=== PATIENT | female | born 1990 | race American Indian/Alaskan Native ===

== ENCOUNTER 2019-01-07 06:12 | Day surgery (SDC) | payer BC ==
[~2019-01-07 06:12] MED LIST: LACTATED RINGERS 1,000 ML IV SCH
[2019-01-07] MEDS ORDERED: TRANSDERM-SCOP TD NR (07:17)
[2019-01-07] MEDS ORDERED: XYLOCAINE MPF 2% ONE (07:20)
[2019-01-07] MEDS ORDERED: SUBLIMAZE ONE (07:21)
[2019-01-07] MEDS ORDERED: DIPRIVAN 10 MG/ML IV ONE (07:21)
[2019-01-07] MEDS ORDERED: NORCO 5/325 PO PRN (07:26)
[2019-01-07] MEDS ORDERED: SUBLIMAZE IV PRN (07:26)
--- NOTE | 2019-01-07 07:26 | Anesthesia Day of Surgery ---
Anesthesia Day of Surgery - Day of Surgery Patient Examined: Yes Patient H&P Reviewed: Yes Patient is NPO: Yes
--- NOTE | 2019-01-07 07:26 | Anesthesia Consultation ---
Anesthesia Consult and Med Hx Date of service: 01/07/19 - Airway Anesthetic Teeth Evaluation: Good ROM Head & Neck: Adequate Mental/Hyoid Distance: Adequate Mallampati Class: Class II Intubation Access Assessment: Probably Good - Pulmonary Exam CTA: Yes - Cardiac Exam Cardiac Exam: RRR - Pre-Operative Health Status ASA Pre-Surgery Classification: ASA1 Proposed Anesthetic Plan: General - Pulmonary Hx Smoking: No Hx Respiratory Symptoms: Yes (dry cough; no fever, chills, or SOB) SOB: No - Cardiovascular System Hx Hypertension: No Hx Heart Attack/AMI: No Hx Percutaneous Transluminal Coronary Angioplasty (PTCA): No Hx Cardia Arrhythmia: No - Central Nervous System Hx Seizures: No CVA: No - Gastrointestinal Hx Gastroesophageal Reflux Disease: No - Endocrine Hx Renal Disease: No Hx Liver Disease: No Hx Insulin Dependent Diabetes: No Hx Non-Insulin Dependent Diabetes: No Hx Thyroid Disease: No - Other Systems Hx Alcohol Use: Yes (Drinks wine daily) Hx Obesity: No - Additional Comments Anesthesia Medical History Comments: No prior GA. No FHx anesthetic complications.
[2019-01-07] MEDS ORDERED: XYLOCAINE 1%/ EPI 1:100,000 INFILTRATI ONE (07:52)
[2019-01-07] MEDS ORDERED: MONSEL'S TP ONE (07:52)
[2019-01-07] MEDS ORDERED: VERSED IV NR (08:00)
[2019-01-07] MEDS ORDERED: LUGOL'S SOLUTION 5% TP ONE ×2 (08:38→09:33)
[2019-01-07] MEDS ORDERED: ACETIC ACID 3% SOLN TP ONE ×2 (08:38→09:33)
[2019-01-07] MEDS ORDERED: SILVER NITRATE TP ONE ×2 (09:15→09:38)
[2019-01-07] MEDS ORDERED: TORADOL ONE (09:15)
[2019-01-07] MEDS ORDERED: ZOFRAN ONE (09:15)
[2019-01-07] MEDS ORDERED: NACL 0.9% IR ONE ×2 (09:33)
[2019-01-07] MEDS ORDERED: DEMEROL IV PRN (09:40)
--- NOTE | 2019-01-07 09:53 | Operative Report ---
Operative Report Operative Report: DATE OF OPERATION: 01/07/19 PREOP Diagnosis 1. Unable to tolerate colposcopy in office 2. 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 Abnormal uterine bleeding 5. Leiomyoma Postop Diagnosis 1. Unable to tolerate colposcopy in office 2. 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 Abnormal uterine bleeding 5. Leiomyoma Procedure: 1. Hysteroscopy 2. D&C 3. Colposcopy Findings 1. Anteverted uterus sounded to 9cm 2. Submucosal fibroid at uterine fundus, obstructing bilateral tubal ostia Surgeon 1. Joy Freed MD Anesthesia: 1. General I/O: EBL: <20ml LR Fluid deficit <1000ml Specimens removed: 1. Cervical biopsy 9oclock 12oclock 2. Endocervical curettage 3. Endometrial currettings Complications: none Disposition: Patient taken to recovery room in stable condition INDICATIONS: The patient is a 28yo with ASCUS/HRHPV (+) who was unable to tolerate colposcopy in office presents for colposcopy under anesthesia with concurrent diagnostic hysteroscopy for abnormal uterine bleeding and enlarged uterus. The risks including but not limited to bleeding, infection, injury to surrounding organs and uterine perforation have been discussed with patient. All questions were answered and informed consent signed. PROCEDURE: The patient was taken to the OR in stable condition and placed on the OR table. Adequate anesthesia was achieved. She was placed in the dorsal lithotomy position using Jose L stirrups and sterilely draped in the usual fashion. She wore SCDs for DVT prophylaxis. A time out was done. A sterile speculum was placed per vagina and a colposcopy was done using acertic acid and Lugol's solution. Two biopsies were taken at visual areas of acetic white changes. An ECC was done. A single toothed tenaculum was placed at the anterior lip of the cervix. The uterus was sounded to 9cm. The cervix was dilated to 19 Vietnamese and a 0 degree hysteroscope was introduced into the cervical os. A fibroid was noted at the fundal cavity obliterating the right and left cornual os. A gental D&C using #1 currette was used to obtain an endometrial biopsy. The single tooth tenaculum was then removed, cervix noted to be hemostatic. Sterile speculum then removed. All counts were correct. The patient was then to the recovery room in stable condition.
--- NOTE | 2019-01-07 09:57 | Discharge Summary ---
Providers - Providers Attending physician: JEAN MARIE GOODEN Primary care physician: JEAN MARIE GOODEN Hospitalization Reason for admission: other Procedure: other (colposcopy, hysteroscopy, D&C) Hospital course: 28yo presented for colposcopy due to unable to tolerate procedure in office. She also has a history of symptomatic leiomyoma and abnormal uterine bleeding. She underwent a hysteroscopy D&C and location submucoal leiomyoma identified. She recovered well in PACU and was discharged home in stable condition. Condition at discharge: Stable Disposition: DC-01 TO HOME OR SELFCARE - Discharge Diagnoses (1) High risk HPV infection Status: Acute (2) Leiomyoma Status: Acute (3) Abnormal uterine bleeding Status: Acute Plan - Provider Discharge Summary Activity: no sex for 6 weeks Additional instructions: [] Smoking cessation referral if applicable(refer to patient education folder for contact #) [] Refer to [facility] Booklet Call your doctor immediately for: * Fever > 100.5 * Heavy vaginal bleeding ( >1 pad per hour) * Severe persistent headache * Shortness of breath * Reddened, hot, painful area to leg or breast * Drainage or odor from incision. * Keep incision clean and dry at all times and follow doctor's instructions regarding bathing/showering - Follow up plan Follow up: JEAN MARIE GOODEN MD [Primary Care Provider] - 7 Days
[2019-01-07 10:32] VITALS: BP 119/78
--- NOTE | 2019-01-07 16:42 | Post Anesthesia Evaluation ---
- Post Anesthesia Evaluation Patient Participated: Yes Airway Patent: Yes Stable Respiratory Function: Yes Nausea/Vomiting: No Temp > 96.8F: Yes Pain Manageable: Yes Adequeate Hydration: Yes Anesthesia Complications: No
== END 2019-01-07 10:40 | disposition home or self-care (01) ==
LOC: OR 06:12
PROVIDERS: ATTEND Obstetrics & Gynecology
DX: D25.0 Submucous leiomyoma of uterus (principal); N93.8 Other specified abnormal uterine and vaginal bleeding; N85.8 Other specified noninflammatory disorders of uterus; N72 Inflammatory disease of cervix uteri; B97.7 Papillomavirus as the cause of diseases classified elsewhere; Z72.89 Other problems related to lifestyle; Z98.890 Other specified postprocedural states; Z79.899 Other long term (current) drug therapy
CPT/HCPCS: 58558; 81025; 88305; A4217; J1885; J2175; J2405; J2704; J3010; J7120; J2250

== ENCOUNTER 2019-02-14 10:50 | Day surgery (SDC) | payer BC ==
--- NOTE | 2019-02-05 09:48 | Anesthesia Consultation ---
Anesthesia Consult and Med Hx Date of service: 02/05/19 - Airway Anesthetic Teeth Evaluation: Good ROM Head & Neck: Adequate Mental/Hyoid Distance: Adequate Mallampati Class: Class III Intubation Access Assessment: Possibly Difficult - Pulmonary Exam CTA: Yes - Cardiac Exam Cardiac Exam: RRR - Pre-Operative Health Status ASA Pre-Surgery Classification: ASA1 Proposed Anesthetic Plan: General - Pulmonary Hx Smoking: No Hx Respiratory Symptoms: Yes (nonproductive cough x2d. No CP, dyspnea, fevers, chills) SOB: No Hx Sleep Apnea: No - Cardiovascular System Hx Hypertension: No Hx Heart Attack/AMI: No Hx Percutaneous Transluminal Coronary Angioplasty (PTCA): No Hx Cardia Arrhythmia: No - Central Nervous System Hx Seizures: No CVA: No Hx Psychiatric Problems: No - Gastrointestinal Hx Gastroesophageal Reflux Disease: No - Endocrine Hx Renal Disease: No Hx Liver Disease: No Hx Insulin Dependent Diabetes: No Hx Non-Insulin Dependent Diabetes: No Hx Thyroid Disease: No - Other Systems Hx Alcohol Use: Yes (Drinks wine daily) - Additional Comments Anesthesia Medical History Comments: Hx PONV with most recent anesthetic.
[2019-02-05 09:51] LABS: Basophils % (Auto) 0.8 % (0.0-1.8); Eosinophils # (Auto) 0.1 K/mm3 (0.0-0.4); Eosinophils % (Auto) 2.4 % (0.0-4.3); Hematocrit 36.3 % (30.3-42.9); Hemoglobin 12.2 gm/dl (10.1-14.3); Lymphocytes # (Auto) 1.7 K/mm3 (1.2-5.4); Lymphocytes % (Auto) 44.6 % (13.4-35.0); Mean Corpuscular HGB Conc 34 % (30-34); Mean Corpuscular Volume 87 fl (79-97); Monocytes # (Auto) 0.3 K/mm3 (0.0-0.8); Monocytes % (Auto) 7.1 % (0.0-7.3); Platelet Count 210 K/mm3 (140-440); Red Blood Count 4.15 M/mm3 (3.65-5.03); Red Cell Distribution Width 14.8 % (13.2-15.2)
[~2019-02-14 10:50] MED LIST changes: +TRANSDERM-SCOP TD NR; +VERSED IV NR
--- NOTE | 2019-02-14 11:38 | Anesthesia Day of Surgery ---
Anesthesia Day of Surgery - Day of Surgery Patient Examined: Yes Patient H&P Reviewed: Yes Patient is NPO: Yes
[2019-02-14] MEDS ORDERED: DILAUDID IV PRN (11:39)
[2019-02-14] MEDS ORDERED: ZOFRAN IV PRN (11:39)
[2019-02-14] MEDS ORDERED: DIPRIVAN 10 MG/ML IV ONE (13:19)
[2019-02-14] MEDS ORDERED: DILAUDID ONE (13:19)
[2019-02-14] MEDS ORDERED: XYLOCAINE MPF 2% ONE (13:20)
[2019-02-14] MEDS ORDERED: DECADRON ONE (14:29)
[2019-02-14] MEDS ORDERED: ZOFRAN ONE (15:05)
[2019-02-14] MEDS ORDERED: TORADOL ONE (15:05)
[2019-02-14] MEDS ORDERED: NACL 0.9% IR ONE (15:18)
--- NOTE | 2019-02-14 15:48 | Operative Report ---
Operative Report Operative Report: DATE OF OPERATION: 02/14/19 PREOP Diagnosis 1. Symptomatic leiomyoma 2. Dysmenorrhea 3. Infertility Postop Diagnosis 1. Symptomatic leiomyoma 2. Dysmenorrhea 3. Infertility Procedure: 1. Hysteroscopic polypectomy with Myosure Findings 1. Anteverted uterus sounded to 9cm 2. Bilateral cornua visible 3. No submucosal fibroid was noted via hysteroscopy Surgeon 1. Joy Freed MD Anesthesia: 1. General I/O: EBL: <20ml LR Fluid deficit <1000ml Specimens removed: 1. Endometrial polypoid tissue Complications: none Disposition: Patient taken to recovery room in stable condition INDICATIONS: The patient is a 28yo with symptomatic uterine fibroids and dysmenorrhea that presents for operative hysteroscopy with myomectomy based on uterine fibroid identified on ultrasound. The risks including but not limited to bleeding, infection, injury to surrounding organs and uterine perforation have been discussed with patient. All questions were answered and informed consent signed. PROCEDURE: The patient was taken to the OR in stable condition and placed on the OR table. Adequate anesthesia was achieved. She was placed in the dorsal lithotomy position using Jose L stirrups and sterilely draped in the usual fashion. She wore SCDs for DVT prophylaxis. A time out was done. A sterile speculum was placed per vagina and single toothed tenaculum was placed on the anterior lip of the cervix. The cervix was dilated using uterine manipulators. The 70degree scope was placed per vagina and uterus allowed to fill with isotonic solution. The uterine fibroid was not readily visible on hysteroscopy so the pressure was decreased and the second look revealed polypoid appearing tissue. The Myosure Reach device was used to remove endometrial tissue and the procedure was ended. The device was removed under direct visualization, no defects were noted. The single tooth tenaculum was then removed, cervix noted to be hemostatic. Sterile speculum then removed. All counts were correct. The patient was then to the recovery room in stable condition.
[2019-02-14 17:59] VITALS: BP 142/82
--- NOTE | 2019-02-14 22:24 | Post Anesthesia Evaluation ---
- Post Anesthesia Evaluation Patient Participated: Yes Airway Patent: Yes Stable Respiratory Function: Yes Nausea/Vomiting: No Temp > 96.8F: Yes Pain Manageable: Yes Adequeate Hydration: Yes Anesthesia Complications: No Block Receding Appropriately: Not Applicable Patient on Ventilator: No
== END 2019-02-14 10:51 | disposition home or self-care (01) ==
LOC: OR 10:50
PROVIDERS: ATTEND Obstetrics & Gynecology
DX: N85.8 Other specified noninflammatory disorders of uterus (principal); N97.9 Female infertility, unspecified; N94.6 Dysmenorrhea, unspecified; Z79.899 Other long term (current) drug therapy; Z72.89 Other problems related to lifestyle; Z98.890 Other specified postprocedural states
CPT/HCPCS: 36415; 57455; 58558; 81025; 85025; 86850; 86900; 86901; 88305; A4217; C1782; J1100; J1170; J1885; J2250; J2405; J2704; J7120

== ENCOUNTER 2020-05-26 05:43 | Observation (INO) | payer OTHER ==
[2020-04-26 10:35] LABS: Basophils % (Auto) 0.7 % (0.0-1.8); Eosinophils # (Auto) 0.1 K/mm3 (0.0-0.4); Eosinophils % (Auto) 2.6 % (0.0-4.3); Hematocrit 36.2 % (30.3-42.9); Hemoglobin 12.1 gm/dl (10.1-14.3); Lymphocytes # (Auto) 1.8 K/mm3 (1.2-5.4); Lymphocytes % (Auto) 42.1 % (13.4-35.0); Mean Corpuscular HGB Conc 33 % (30-34); Mean Corpuscular Volume 86 fl (79-97); Monocytes # (Auto) 0.3 K/mm3 (0.0-0.8); Monocytes % (Auto) 6.9 % (0.0-7.3); Platelet Count 195 K/mm3 (140-440); Red Blood Count 4.19 M/mm3 (3.65-5.03)
--- NOTE | 2020-04-26 10:40 | Anesthesia Consultation ---
Anesthesia Consult and Med Hx Date of service: 04/28/20 - Airway Anesthetic Teeth Evaluation: Good ROM Head & Neck: Adequate Mental/Hyoid Distance: Adequate Mallampati Class: Class III Intubation Access Assessment: Possibly Difficult - Pulmonary Exam CTA: Yes - Cardiac Exam Cardiac Exam: RRR - Pre-Operative Health Status ASA Pre-Surgery Classification: ASA1 Proposed Anesthetic Plan: General - Pulmonary Hx Smoking: No Hx Respiratory Symptoms: No Hx Sleep Apnea: No - Cardiovascular System Hx Hypertension: No - Central Nervous System CVA: No - Gastrointestinal Hx Gastroesophageal Reflux Disease: No - Endocrine Hx Renal Disease: No Hx Liver Disease: No Hx Insulin Dependent Diabetes: No Hx Non-Insulin Dependent Diabetes: No Hx Thyroid Disease: No - Other Systems Hx Alcohol Use: Yes (Occas) Hx Obesity: Yes (BMI 30) - Additional Comments Anesthesia Medical History Comments: No hx anesthetic complications.
[~2020-05-26 05:43] MED LIST changes: +CELECOXIB 200 MG CAP PO NR; +GABAPENTIN 300 MG CAP PO NR; +MAGNESIUM OXIDE 400 MG TAB PO SCH; +MIDAZOLAM 2 MG/2 ML INJ IV NR; +SCOPOLAMINE TRANSDERMAL PATCH 72 HR TD NR; -TRANSDERM-SCOP TD NR; -VERSED IV NR; +fentaNYL 100 MCG/2 ML INJ IV PRN
[2020-05-26] MEDS ORDERED: LACTATED RINGERS 1,000 ML IV SCH (06:00)
[2020-05-26] MEDS ORDERED: fentaNYL 100 MCG/2 ML INJ IV PRN (06:00)
[2020-05-26] MEDS ORDERED: MIDAZOLAM 2 MG/2 ML INJ IV NR (06:00)
[2020-05-26] MEDS ORDERED: GABAPENTIN 300 MG CAP PO NR (06:00)
[2020-05-26] MEDS ORDERED: CELECOXIB 200 MG CAP PO NR (06:00)
[2020-05-26] MEDS ORDERED: MAGNESIUM OXIDE 400 MG TAB PO SCH (06:00)
--- NOTE | 2020-05-26 07:09 | Anesthesia Day of Surgery ---
Anesthesia Day of Surgery - Day of Surgery Patient Examined: Yes Patient H&P Reviewed: Yes Patient is NPO: Yes
[2020-05-26] MEDS ORDERED: HYDROmorphone 1 MG/1 ML INJ IV PRN (07:10)
[2020-05-26] MEDS ORDERED: BUPIVACAINE-EPINEPHRINE/PF 0.25%-1:200,000 (30 ML) VIAL INFILTRATI ONE (07:15)
[2020-05-26] MEDS ORDERED: ROCURONIUM 50 MG/5 ML INJ IV ONE ×2 (07:24→10:25)
[2020-05-26] MEDS ORDERED: propofoL 200 MG/20 ML VIAL IV ONE (07:25)
[2020-05-26] MEDS ORDERED: fentaNYL 100 MCG/2 ML INJ ONE (07:25)
[2020-05-26] MEDS ORDERED: VASOPRESSIN 20 UNIT/1 ML INJ ONE (07:25)
[2020-05-26] MEDS ORDERED: SODIUM CHLORIDE 0.9% 100 ML ONE (07:25)
--- NOTE | 2020-05-26 07:29 | History and Physical Report ---
History of Present Illness Date of examination: 05/26/20 Date of admission: May 26, 2020 Chief complaint: Symptomatic uterine fibroids History of present illness: 29-year-old 010 with a history of symptomatic uterine fibroids. The patient had a pelvic ultrasound that demonstrated an exophytic pedunculated fibroid measuring 11 cm. The patient desires to conceive in the future. She reports pelvic pain and pressure secondary to her uterine fibroid. Past History Past Medical History: other (Fibroids) Past Surgical History: myomectomy, other (Hysteroscopy) SENIOR QUALITY ASSURANCE ANALYST History: fibroids Social history: - Obstetrical History : 1 Para: 0 Hx # Term Pregnancies: 0 Number of Pregnancies: 0 Spontaneous Abortions: 1 Induced : 0 Medications and Allergies Allergies Allergy/AdvReac Type Severity Reaction Status Date / Time No Known Allergies Allergy Verified 04/21/20 15:03 Home Medications Medication Instructions Recorded Confirmed Last Taken Type No Known Home Medications [No 04/21/20 04/21/20 Unknown History Reported Home Medications] Active Meds: Active Medications Celecoxib (Celebrex) 200 mg PO PREOP NR Stop: 05/26/20 23:59 Fentanyl (Sublimaze) 100 mcg IV ONCE PRN PRN Reason: sedation for nerve block Stop: 05/26/20 23:59 Gabapentin (Gabapentin) 600 mg PO PREOP NR Stop: 05/26/20 23:59 Hydromorphone HCl (Dilaudid) 0.5 mg IV Q10MIN PRN PRN Reason: Pain , Severe (7-10) Stop: 05/26/20 23:00 Lactated Ringer's (Lactated Ringers) 1,000 mls @ 100 mls/hr IV DIRECT DANA Stop: 05/26/20 23:59 Magnesium Oxide (Mag-Ox) 400 mg PO PREOP DANA Stop: 05/26/20 23:59 Midazolam HCl (Versed) 2 mg IV PREOP NR Stop: 05/26/20 23:59 Review of Systems All systems: negative Genitourinary: pelvic pain - Vital Signs Vital signs: Vital Signs Temp Pulse Resp BP Pulse Ox 98 F 70 20 104/70 99 04/26/20 10:00 04/26/20 10:00 04/26/20 10:00 04/26/20 10:00 04/26/20 10:00 Temp Pulse Resp BP Pulse Ox 98 F 70 20 104/70 99 04/26/20 10:00 04/26/20 10:00 04/26/20 10:00 04/26/20 10:00 04/26/20 10:00 - Physical Exam Breasts: Positive: deferred Cardiovascular: Regular rate Lungs: Positive: Clear to auscultation Results Result Diagrams: 04/26/20 10:10 All other labs normal. Assessment and Plan - Patient Problems (1) Pelvic pain Current Visit: Yes Status: Acute Plan to address problem: The patient is scheduled for robotic myomectomy and other indicated procedures (2) Leiomyoma Current Visit: No Status: Acute
[2020-05-26] MEDS ORDERED: ceFAZolin/Water 2 GM/20 ML 2 GM/20 ML SYRINGE IV NR (08:00)
[2020-05-26] MEDS ORDERED: CITRIC ACID-SOD CITRATE 500 ML IV ONE (08:07)
[2020-05-26] MEDS ORDERED: VASOPRESSIN 20 UNIT/1 ML INJ IM ONE (08:40)
[2020-05-26] MEDS ORDERED: SODIUM CHLORIDE 0.9% 100 ML IVPB IV ONE (08:40)
[2020-05-26] MEDS ORDERED: SODIUM CHLORIDE 0.9% IRRIG SOLN 2000 ML IR ONE (08:41)
[2020-05-26] MEDS ORDERED: SODIUM CHLORIDE 0.9% IRR 1,500 ML BOTTLE IR ONE (08:41)
[2020-05-26] MEDS ORDERED: LACTATED RINGERS 1,000 ML ONE (10:08)
--- NOTE | 2020-05-26 11:11 | Operative Report ---
Operative Report Operative Report: Date of surgery: May 26, 2020 Preoperative diagnoses: Symptomatic uterine fibroids; dysmenorrhea; menorrhagia Postoperative diagnoses: Same as above Procedure: Robotic myomectomy Surgeon: Jessica Pina M.D. Videotape Recording Engineer: Fina Tabares Anesthesia: Gen. endotracheal anesthesia Estimated blood loss: 50 mL Pathology: Leiomyoma Indication: 29-year-old -0-1-0 with a history of symptomatic uterine fibroids. The patient desires to conceive in the future and has elected to undergo myomectomy. Procedure: The patient was taken to the operating room and given general endotracheal anesthesia without complication. She is prepped and draped in a normal sterile fashion. A bivalve speculum was placed in the patient's vagina and a single- tooth tenaculum placed on the anterior lip of the cervix. The uterus was sounded with the uterine sound. A Swish uterine manipulator was placed in the bivalve speculum was then removed. Attention was then turned to the patient's abdomen where a 12millimeter supra umbilical skin incision was then made. A Veress needle was placed and peritoneal entry was verified water-filled syringe. Insufflation of the peritoneal cavity was performed with CO2 gas. The 12 mm trocar was then placed under direct visualization. An additional 8 mm trocar was placed on the patient's left and right lateral side just opposite of the supraumbilical trocar. An additional 12 mm right lateral trocar was then placed as the accessory port. The supraumbilical and right lateral 12 mm trocar sites were closed with the Dain Cartwright device and 0-vicryl suture. The patient was then placed in steep Trendelenburg. The da Blanca robot was then engaged. A fenestrated forcep was placed in arm 2 and a monopolar scissor was placed in arm 1. General survey revealed a large fundal leiomyoma. There were filmy adhesions of the fallopian tube to the ovaries. The patient had 4 additional subserosal leiomyomas. The pedunculated leiomyoma was over 11 cm. The surgeon then transferred to the surgical console. Diluted Pitressin was injected in the base of the leiomyoma. Monopolar scissors were used to coagulate and transect the serosa and extract the leiomyoma from the uterus. The myometrial defect was reapproximated with 2 oh VueLock suture. The serosa was then reapproximated with 2-0 Vicryl in a running fashion. A 2 cm anterior serosal leiomyoma was also extracted. The serosal surface was reapproximated with 2-0 Vicryl in a running fashion. There were 3 additional 1 cm subserosal leiomyomas that were excised in a similar fashion. The morcellator was placed in the right lateral site. The morcellator was used in order to extract the large leiomyoma. Once the leiomyoma was removed from the pelvis copious irrigation was performed. Hemoblast was applied to the incision sites. The uterine incisions were hemostatic. The da Blanca robot was then disengaged. The trochars were then removed. The skin was then reapproximated with 4-0 Monocryl. The tissue was sent to pathology which included the leiomyoma. The patient was then truong ccessfully extubated. She was then taken to the recovery room in stable condition. All sponge laps and needle counts were correct x2.
[2020-05-26] MEDS ORDERED: ONDANSETRON 4 MG/2 ML INJ ONE (11:22)
[2020-05-26] MEDS ORDERED: GLYCOPYRROLATE 0.4 MG/2 ML INJ ONE (11:22)
[2020-05-26] MEDS ORDERED: NEOSTIGMINE 10MG/10 ML INJ MDV ONE (11:22)
[2020-05-26] MEDS ORDERED: dexAMETHasone 20 MG/5 ML VIAL ONE (11:30)
[2020-05-26] MEDS ORDERED: MEPERIDINE 25 MG/1 ML INJ IV PRN (11:35)
[2020-05-26] MEDS ORDERED: MEPERIDINE 25 MG/1 ML INJ ONE (11:40)
[2020-05-26] MEDS ORDERED: ONDANSETRON 4 MG/2 ML INJ IV PRN (12:33)
[2020-05-26] MEDS ORDERED: IBUPROFEN 600 MG TAB PO SCH (12:33)
[2020-05-26] MEDS ORDERED: oxyCODONE /ACETAMINOPHEN 5-325MG TAB PO PRN (12:33)
[2020-05-26] MEDS ORDERED: MORPHINE 4 MG/1 ML INJ IV PRN (12:33)
[2020-05-26] MEDS ORDERED: D5W/LACTATED RINGERS 1,000 ML IV SCH (12:33)
[2020-05-26] MEDS ORDERED: ACETAMINOPHEN 325 MG TAB PO PRN (12:33)
--- NOTE | 2020-05-26 12:51 | Post Anesthesia Evaluation ---
- Post Anesthesia Evaluation Patient Participated: Yes Airway Patent: Yes Stable Respiratory Function: Yes Nausea/Vomiting: Yes (improved with antiemetic) Temp > 96.8F: Yes Pain Manageable: Yes Adequeate Hydration: Yes Anesthesia Complications: No
[2020-05-26] MEDS ORDERED: PROMETHAZINE 25 MG TAB PO PRN (18:44)
--- NOTE | 2020-05-27 08:14 | Progress Note ---
Assessment and Plan - Patient Problems (1) Pelvic pain Current Visit: Yes Status: Acute Plan to address problem: Patient doing well Discharge home (2) Leiomyoma Current Visit: No Status: Acute Subjective - Subjective Date of service: 05/27/20 Interval history: The patient reports feeling hungry this morning. She denies any additional nausea and vomiting. Her pain is well controlled. Patient reports: appetite normal, voiding normally, pain well controlled Objective - Vital Signs Latest vital signs: Vital Signs Temp Pulse Resp BP BP Pulse Ox 05/27/20 04:21 98.0 F 101 H 18 101/59 95 05/27/20 00:54 98.7 F 83 18 107/63 100 05/26/20 20:22 97.7 F 79 18 104/60 90 05/26/20 16:22 97.7 F 85 16 101/63 98 05/26/20 12:15 98.4 F 92 H 18 125/84 100 05/26/20 11:55 16 05/26/20 11:54 98.2 F 76 16 132/81 100 05/26/20 11:51 16 05/26/20 11:40 16 05/26/20 11:39 92 H 16 132/83 100 05/26/20 11:34 94 H 20 141/90 100 05/26/20 11:29 95 H 18 142/93 100 05/26/20 11:24 97.6 F 94 H 20 138/89 100 Intake and Output 05/26/20 05/27/20 05/27/20 22:59 06:59 14:59 Intake Total 220 300 Output Total 951 Balance -731 300 Intake: Oral 220 Intake, Free Water 300 Output: Urine 800 Void 800 Emesis 151 Other: Total, Intake Amount 100 Total, Output Amount 300 Voiding Method Toilet # Voids Void 1 1 - Exam Abdomen: Present: normal appearance, soft Incision: Present: normal
--- NOTE | 2020-05-27 08:15 | Discharge Summary ---
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 Please see operative note for details of surgery. Postoperative course was only complicated by intermittent nausea and vomiting. Her symptoms resolved with medical therapy. Condition at discharge: Good Disposition: DC-01 TO HOME OR SELFCARE - Discharge Diagnoses (1) Pelvic pain Status: Acute (2) Leiomyoma Status: Acute Plan - Discharge Medications Prescriptions: Ibuprofen [Motrin] 800 mg PO Q8HR PRN #60 tablet PRN Reason: Pain , Severe (7-10) oxyCODONE /ACETAMINOPHEN [Percocet 5/325] 1 tab PO Q6HR PRN #30 tablet PRN Reason: Pain - Provider Discharge Summary Activity: no sex for 6 weeks, no heavy lifting 4 weeks, no strenuous exercise Diet: routine Instructions: routine Additional instructions: [] Smoking cessation referral if applicable(refer to patient education folder for contact #) [] Refer to [facility] Booklet Call your doctor immediately for: * Fever > 100.5 * Heavy vaginal bleeding ( >1 pad per hour) * Severe persistent headache * Shortness of breath * Reddened, hot, painful area to leg or breast * Drainage or odor from incision. * Keep incision clean and dry at all times and follow doctor's instructions regarding bathing/showering ~Follow-up in 4 weeks - Follow up plan
[2020-05-27 09:42] VITALS: BP 103/47
== END 2020-05-27 10:24 | disposition home or self-care (01) ==
LOC: OR 05:43 → OB 11:12
PROVIDERS: ADMIT Obstetrics & Gynecology; ATTEND Obstetrics & Gynecology
DX: U07.1 COVID-19 (principal); D25.2 Subserosal leiomyoma of uterus; R11.2 Nausea with vomiting, unspecified; N92.0 Excessive and frequent menstruation with regular cycle; N94.6 Dysmenorrhea, unspecified
CPT/HCPCS: 36415; 36430; 58546; 81025; 84703; 85025; 86850; 86900; 86901; 88305; 96361; 96372; 96374; 96375; A4217; C1782; G0378; J0690; J1100; J1170; J2175; J2250; J2270; J2405; J2704; J2710; J3010; J7120; P9016; Q0169; S2900; U0003